=== PATIENT | female | born 1965 | race Caucasian/White ===

== ENCOUNTER 2021-12-17 06:33 | Day surgery (SDC) | payer MEDICAID ==
[~2021-12-17] VITALS: Ht 160 cm; Wt 66.7 kg
[2021-12-17] MEDS ORDERED: diphenhydrAMINE 50 MG/ML VIAL ONE (08:25)
[2021-12-17] MEDS ORDERED: fentaNYL citrate 0.05 MG/ML VIAL ONE ×2 (08:25→08:26)
[2021-12-17] MEDS ORDERED: LIDOCAINE 2% 100 MG/5 ML UJET TP ONE (08:26)
[2021-12-17] MEDS ORDERED: MIDAZOLAM 2 MG/2 ML VIAL ONE (08:26)
[2021-12-17] MEDS ORDERED: fentaNYL citrate 0.05 MG/ML VIAL IVP ONE (14:15)
[2021-12-17] MEDS ORDERED: MIDAZOLAM 5 MG/5 ML VIAL IV ONE (14:15)
== END 2021-12-17 09:53 | disposition home or self-care (01) ==
LOC: MDS 06:33 → MMU 06:38 → MDS 09:53
PROVIDERS: ATTEND Internal Medicine Gastroenterology
DX: Z12.11 Encounter for screening for malignant neoplasm of colon (principal); K64.9 Unspecified hemorrhoids; R74.01 Elevation of levels of liver transaminase levels; E11.9 Type 2 diabetes mellitus without complications; I10 Essential (primary) hypertension; Z88.0 Allergy status to penicillin; Z20.822 Contact with and (suspected) exposure to COVID-19
CPT/HCPCS: 45378; 87426; J2250; J3010; J1200